=== PATIENT | female | born 1965 | race Two or more races ===

== ENCOUNTER 2024-12-01 10:53 | Emergency (ER) | payer MEDICAID ==
[~2024-12-01] VITALS: Ht 165.1 cm; Wt 68.0 kg
[2024-12-01 10:55] VITALS: O2SAT 100
[2024-12-01 11:22] LABS: BASOPHILS % 1.2 % (0.0-2.0); EOSINOPHILS % 1.7 % (0.0-5.0); HEMATOCRIT. 34.0 % (36.0-48.0); HEMOGLOBIN. 10.3 g/dL (12.0-16.0); LYMPHOCYTES % 29.1 % (20.0-50.0); MEAN PLATELET VOLUME 7.9 fl (7.4-10.4); MONOCYTES % 5.1 % (2.0-8.0); NEUTROPHILS % 62.9 % (40.0-76.0); PLATELET 440 x1000/uL (130-400); RED BLOOD CELL COUNT 4.49 mill/uL (4.2-5.4); RED CELL DISTRIBUTION WIDTH 20.3 % (11.6-14.6)
[2024-12-01 11:36] LABS: CREATININE 1.2 mg/dL (0.6-1.0); UREA NITROGEN BLOOD 16 mg/dL (9-23)
[2024-12-01 11:37] LABS: ASPARTATE AMINOTRANSFERASE 16 IU/L (<34); BILIRUBIN DIRECT < 0.1 mg/dL (<=3.0); BILIRUBIN TOTAL 0.3 mg/dL (0.1-1.0)
[2024-12-01 11:38] LABS: PROTEIN TOTAL 8.5 g/dL (6.0-8.3)
[2024-12-01] MEDS: INSULIN REGULAR (HUMULIN R) 1000UNITS/10ML VIAL IV ONE (12:15)
[2024-12-01] MEDS: LEVETIRACETAM 1000MG PREMIX 100 ML IV ONE (12:15)
[2024-12-01] MEDS: SODIUM BICARBONATE 8.4% 50MEQ/50ML VIAL IV ONE (12:15)
[2024-12-01] MEDS ORDERED: ALBUTEROL (0.5%) 2.5MG/0.5ML NEB HHN ONE (12:15)
[2024-12-01] MEDS ORDERED: MANNITOL 20% (20GM/100ML) BAG 500ML PREMIX IV ONE (12:15)
[2024-12-01] MEDS ORDERED: CALCIUM GLUCONATE 100MG/ML 10ML VIAL IV ONE (12:15)
[2024-12-01 12:44] LABS: INR 1.3
[2024-12-01] MEDS ORDERED: SODIUM BICARBONATE 8.4% 50MEQ/50ML VIAL IV SCH (14:15)
[2024-12-01] MEDS: DEXTROSE 50% WATER 50ML SYRINGE IV SCH (14:15)
[2024-12-01] MEDS: INSULIN REGULAR (HUMULIN R) 1000UNITS/10ML VIAL IV SCH (14:15)
[2024-12-01] MEDS: SODIUM BICARBONATE 8.4% 50MEQ/50ML SYR IV SCH (14:20)
[2024-12-01] MEDS: CALCIUM GLUCONATE 1GM PREMIX 50 ML IV SCH (14:24)
[2024-12-01] MEDS: DEXTROSE 50% WATER 50ML SYRINGE IV ONE (14:24)
[2024-12-01] MEDS: LEVETIRACETAM 1000MG PREMIX 100 ML IV SCH (15:05)
[2024-12-01] MEDS: MANNITOL 20% 250 ML IV SCH (15:05)
[2024-12-01 15:40] VITALS: BP 96/68; PULSE 75; RESP 15; TEMP 36.3; O2SAT 100
[2024-12-01] MEDS: MANNITOL 12.5G (25%) VIAL 50ML IV SCH (17:36)
== END 2024-12-01 17:00 | disposition short-term general hospital (02) ==
LOC: ER 10:53 → CANBEDREQ 17:44
DX: G93.9 Disorder of brain, unspecified (principal); Z79.899 Other long term (current) drug therapy
CPT/HCPCS: 80076; 80048; 82962; 83605; 85025; 85610; 87040; 36415; 84145; 71045; 70450; 93005; 96368; 96365; 96366; 96375; 99291; 99292; J1953; J0610; J1815; J2060; J2150; J3490; Z7610 ×3